=== PATIENT | male | born 1985 | race American Indian/Alaskan Native ===

== ENCOUNTER 2019-02-08 09:45 | Emergency (ER) | payer MEDICAID ==
[2019-02-08 09:58] VITALS: BP 123/74
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
== END 2019-02-08 10:11 | disposition home or self-care (01) ==
LOC: ED 09:45
DX: R59.9 Enlarged lymph nodes, unspecified (principal); F17.200 Nicotine dependence, unspecified, uncomplicated; Z98.890 Other specified postprocedural states; Z88.8 Allergy status to other drugs, medicaments and biological substances; Z88.2 Allergy status to sulfonamides
CPT/HCPCS: 99281

== ENCOUNTER 2019-06-03 07:50 | Emergency (ER) | payer SELFPAY ==
[2019-06-03] MEDS ORDERED: diphenhydrAMINE 50 MG/ML VIAL IV ONE (08:45)
[2019-06-03] MEDS ORDERED: FAMOTIDINE 20 MG/2 ML INJ IV ONE (08:45)
[2019-06-03] MEDS ORDERED: SODIUM CHLORIDE 0.9% 1000 ML 1,000 ML IV ONE (08:45)
[2019-06-03] MEDS ORDERED: dexAMETHasone 20 MG/5 ML VIAL IV ONE (08:45)
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
[2019-06-03 10:37] VITALS: BP 136/81
== END 2019-06-03 10:36 | disposition home or self-care (01) ==
LOC: ED 07:50
DX: T78.40XA Allergy, unspecified, initial encounter (principal); F17.200 Nicotine dependence, unspecified, uncomplicated; Z88.8 Allergy status to other drugs, medicaments and biological substances; Z79.899 Other long term (current) drug therapy; Z98.890 Other specified postprocedural states; X58.XXXA Exposure to other specified factors, initial encounter
CPT/HCPCS: 96374; 96375; 99282; J1100; J1200; J7030; 96361

== ENCOUNTER 2021-11-08 21:15 | Emergency (ER) | payer OTHER, MEDICAID ==
[2021-11-08 21:53] VITALS: BP 118/69
[2021-11-08] MEDS ORDERED: diazePAM 5 MG TAB PO ONE (23:21)
[2021-11-08] MEDS ORDERED: KETOROLAC 60 MG/2 ML INJ IM ONE (23:21)
[2021-11-08] MEDS ORDERED: dexAMETHasone 20 MG/5 ML VIAL IM ONE (23:21)
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
== END 2021-11-09 00:52 | disposition home or self-care (01) ==
LOC: ED 21:15
DX: S39.012A Strain of muscle, fascia and tendon of lower back, initial encounter (principal); M62.830 Muscle spasm of back; F17.200 Nicotine dependence, unspecified, uncomplicated; X50.0XXA Overexertion from strenuous movement or load, initial encounter; X50.9XXA Other and unspecified overexertion or strenuous movements or postures, initial encounter; Y93.89 Activity, other specified; Y92.89 Other specified places as the place of occurrence of the external cause; Y99.8 Other external cause status
CPT/HCPCS: 96372; 99281; J1100; J1885